=== PATIENT | female | born 1970 | race Caucasian/White ===

== ENCOUNTER 2020-08-11 19:43 | Emergency (ER) | payer MEDICAID ==
[~2020-08-11] VITALS: Ht 172.7 cm; Wt 65.0 kg
--- NOTE | 2020-08-11 20:00 | NUR ---
Pt had bm on herself in route, pt is slow to respond to questions, looking down not answering many questions other than yes or no. Pt left her car at [facility]. Denies drugs, alcohol.
--- NOTE | 2020-08-11 20:12 | NUR ---
Offerred pt assistance to clean herself up, she declined. Report to [address]
[2020-08-11] MEDS ORDERED: DIAZEPAM 5 MG/ML, 2ML IVPush ONE (20:30)
[2020-08-11] MEDS ORDERED: methylPREDNISolone SOD SUCC 125 MG/2 ML IVPush ONE (20:30)
[2020-08-11] MEDS ORDERED: KETOROLAC 30 MG/1 ML IVPush ONE (20:30)
[2020-08-11] MEDS ORDERED: SODIUM CHLORIDE FLUSH 10ML SYR IVF ONE (20:30)
[2020-08-11] MEDS ORDERED: ONDANSETRON 2MG/ML, 2ML IVPush ONE (20:30)
[2020-08-11 20:41] LABS: BASOPHILS % (AUTO) 0 % (0-1); EOSINOPHILS % (AUTO) 1 % (1-7); LYMPHOCYTES % (AUTO) 3 % (22-44); MEAN CORPUSCULAR HEMOGLOBIN 31.5 pg (27.0-34.8); MEAN CORPUSCULAR HGB CONC 34.2 g/dL (32.4-35.8); MEAN PLATELET VOLUME 8.5 fL (7.4-10.4); MONOCYTES % (AUTO) 2 % (2-9); NEUTROPHILS % (AUTO) 94 % (42-75); PLATELET COUNT 235 x10^3/uL (130-400); RED BLOOD COUNT 4.57 x10^6/uL (3.82-5.3); RED CELL DISTRIBUTION WIDTH 12.8 % (9.6-15.2)
--- NOTE | 2020-08-11 20:41 | NUR ---
PT CONTINUES TO REFUSE ASSISTANCE IN CLEANING HER BM UP. XRAYS UNABLE TO BE COMPLETED DUE TO AMOUNT OF BM ON PT AT THIS TIME.
[2020-08-11] MEDS ORDERED: methylPREDNISolone SOD SUCC 125 MG/2 ML ONE (20:44)
[2020-08-11 20:45] LABS: ALBUMIN 3.4 g/dL (3.4-5.0); ANION GAP 6 mmol/L (5-15); CALCIUM 8.5 mg/dL (8.5-10.1); CHLORIDE 110 mmol/L (98-107); CREATININE 0.63 mg/dL (0.55-1.02)
[2020-08-11] MEDS ORDERED: KETOROLAC 30 MG/1 ML ONE (20:45)
[2020-08-11] MEDS ORDERED: DIAZEPAM 5 MG/ML, 2ML ONE (20:45)
[2020-08-11] MEDS ORDERED: ONDANSETRON 2MG/ML, 2ML ONE (20:45)
[2020-08-11 20:52] LABS: MD NO
--- NOTE | 2020-08-11 21:30 | NUR ---
PT AGREEING TO A SHOWER TO CLEAN HER. PT ASSISTED IN CLEANING HERSELF AND BACK TO BED.
--- NOTE | 2020-08-11 22:10 | NUR ---
XRAY CALLED TO COME GET PT FOR XRAY AT THIS TIME.
--- NOTE | 2020-08-11 22:22 | NUR ---
PT REFUSING TO PROVIDE URINE SAMPLE AT THIS TIME.
[2020-08-11 22:39] VITALS: BP 110/76
== END 2020-08-11 23:41 | disposition home or self-care (01) ==
LOC: ED 20:13
DX: G89.29 Other chronic pain (principal); M54.5 Low back pain; R11.2 Nausea with vomiting, unspecified; F17.210 Nicotine dependence, cigarettes, uncomplicated
CPT/HCPCS: 36415; 72110; 80048; 82040; 85025; 96374; 96375; 99284; J1885; J2405; J2930; J3360